=== PATIENT | male | born 1965 | race Caucasian/White ===

== ENCOUNTER → 2020-08-08 09:48 | Outpatient (CLI) | payer OTHER, SELFPAY ==
--- NOTE | 2020-08-08 10:10 | US_ITS ---
HISTORY: Right hydronephrosis. 7 images. No comparison imaging. Findings: The right kidney measures 12.4 x 5.5 x 5.8 cm. Severe right hydronephrosis is present. Right renal cortex is measured at 14 mm. Color Doppler imaging demonstrates flow to right renal parenchyma. Within the within the right UPJ there is a 14 x 7 mm obstructing stone. The bladder is mostly decompressed, but provided an estimated bladder volume of just about 500 cc. Bilateral ureteric jets are demonstrated The left kidney measures 11.6 x 6.1 x 4 cm. There is no hydronephrosis or masses. Within the inferior pole there is an echogenic shadowing structure measuring 4 mm suggestive of a nonobstructing nephrolith. Color Doppler imaging demonstrates flow to left renal parenchyma. IMPRESSION: 14 x 7 mm calcification that appears to be within the right ureteropelvic junction causing severe right hydronephrosis. Despite the hydronephrosis and the stone, a right ureteric jet was demonstrated, indicative of absence of a complete obstruction. at 0413 Reported and signed by: Vishal Boykin MD Electronically Signed: Vishal Boykin MD at 4:12 EDT Tel , Service support , US/Kidney and Bladder
[2020-08-08 10:17] LABS: Absolute Lymphocyte Count 1.25 X10^3/uL (0.83-4.51); Absolute Neutrophil Count 3.7 X10^3/uL (2.0-7.7); Basophil# 0.04 X10^3/uL; Basophil% 0.7 % (0-1); Eosinophil# 0.29 X10^3/uL; Eosinophils% 4.9 % (0-5); Hematocrit 45.4 % (40-54); Hemoglobin 14.1 g/dL (13.0-16.5); Lymphocyte # 1.25 X10^3/ul (4.0); Lymphocyte % 20.9 % (19-41); Mean Corp Hgb Conc 31.1 g/dL (32-36); Mean Corpuscular Hgb 26.9 pg (27.0-32.0); Mean Corpuscular Volume 86.5 fL (80-94); Mean Platelet Vol. 9.7 fl (6.2-12.0); Monocyte# 0.64 X10^3/uL; Monocyte% 10.7 % (0-10); NRBC Flagged by Analyzer 0 % (0-5); Neutrophil # 3.73 X10^3/uL (2.7-7.7); Neutrophil % 62.5 % (47-70); Platelet Count 368 K/mm3 (150-450); RBC Distribution Width CV 15.3 % (11.6-14.6); RBC Distribution Width SD 48.5 fl (35.1-43.9); Red Blood Count 5.25 M/mm3 (4.6-6.2)
[2020-08-08 10:59] LABS: Vitamin B12 810 pg/mL (211-911)
[2020-08-08 11:11] LABS: ALB/GLOB Ratio 0.8 RATIO (0.9-2.4); AST(SGOT) 59 U/L (15-37); Alanine Aminotransfer ALT/SGPT 83 U/L (16-61); Albumin, Serum 3.9 g/dL (3.2-5.0); Alkaline Phosphatase 151 U/L (45-117); Anion Gap 6 (5-15); BUN 19 mg/dL (7-18); BUN/Creat Ratio 17.6 RATIO (10-20); Calcium,Total 9.3 mg/dL (8.5-10.1); Chloride 103 mmol/L (98-107); Cholesterol 217 mg/dL (200); Creatinine, Serum 1.08 mg/dL (0.70-1.30); EST Glomerular Filtration Rate 76 mL/min (>60); Est Glom Filt Rate - Afr Amer 92 mL/min (>60); Ferritin 14 ng/mL (26-388); Globulin 4.6 g/dL (2.2-4.2); Glucose 94 mg/dL (74-106); High Density Lipoprotein 56 mg/dL; Iron 149 ug/dL (65-175); PSA,Total - Annual Screen 2.04 ng/mL (0.00-4.00); Potassium 4.4 mmol/L (3.5-5.1); Protein, Total 8.5 g/dL (6.4-8.2); Sodium Level 138 mmol/L (136-145); Thyroid Stim Hormone (TSH) 3.04 uIU/mL (0.358-3.74); Triglycerides 87 mg/dL; Very Low Density Lipoprotein 17 mg/dL (5-40)
== END ==
PROVIDERS: PCP Family Medicine; Referring Provider Family Medicine; Visit Provider Family Medicine
DX: Z00.00 Encounter for general adult medical examination without abnormal findings (principal); N13.30 Unspecified hydronephrosis; D64.9 Anemia, unspecified; E78.00 Pure hypercholesterolemia, unspecified; Z12.5 Encounter for screening for malignant neoplasm of prostate
CPT/HCPCS: 36415; 76770; 80053; 80061; 82607; 82728; 83540; 84153; 84443; 85025; G0103

== ENCOUNTER → 2020-09-01 09:52 | Outpatient (CLI) | payer OTHER, SELFPAY ==
--- NOTE | 2020-09-01 09:55 | NM_ITS ---
CLINICAL: 55-year-old male with reported history of right kidney hydronephrosis. 99m Tc MAG3 DIURETIC RENAL SCINTIGRAPHY COMPARISON: Renal ultrasound report 08/08/2020 FINDINGS: Following the intravenous administration of 11.1 mCi of 99m Tc MAG3, renal images reveal: 1. The flow study demonstrates mildly decreased arterial phase distribution of the radiopharmaceutical to the right kidney. Flow to the left kidney appears normal. 2. Immediate static delayed nephrogram images depict prompt, homogeneous tracer uptake by the renal parenchyma of both kidneys. Collecting structure visualization is defined at 2 minutes following tracer injection and approximately 3-4 minutes post tracer injection regarding the right kidney. Washout by the renal parenchyma of both kidneys appears qualitatively normal. Persistent collecting system activity is defined in the bilateral kidneys (R > L) during 20 minutes of pre-Lasix sequential image acquisition. 3. The zozpo-ai-umst ratio of total renal parenchymal function was calculated to be 50/50. Furosemide 10 mg was administered intravenously. The post Lasix T ? washout of the left kidney collecting system was calculated to be < 10 minutes and approximately 12 minutes regarding the right kidney collecting system activity, (normal < 10 minutes). NM/Renal Scan w/ Pharm Intervent IMPRESSION: 1. There is preservation of bilateral renal parenchymal-cortical function. 2. The prominent-sized dilated right kidney collecting system demonstrates an indeterminate response to induced diuresis (T ? > 10 and < 20 minutes). A normal response to LASIX administration is defined in the left kidney collecting system as defined above. Electronically Signed: Niko Guerrero DO at 8:01 EST Tel , Service support ,
[2020-09-01] MEDS: Furosemide 20 MG/2 ML VIAL 10 MG IV (10:23)
== END ==
PROVIDERS: PCP Family Medicine; Referring Provider Urology; Visit Provider Urology
DX: N13.1 Hydronephrosis with ureteral stricture, not elsewhere classified (principal)
CPT/HCPCS: 78708; A9562

== ENCOUNTER 2020-09-29 13:27 | Observation (INO) | payer OTHER, SELFPAY ==
--- NOTE | 2020-09-22 15:48 | EKG12_ITS ---
Test Reason : PRE-OP Blood Pressure : / mmHG Vent. Rate : 067 BPM Atrial Rate : 067 BPM P-R Int : 170 ms QRS Dur : 120 ms QT Int : 384 ms P-R-T Axes : -01 008 046 degrees QTc Int : 405 ms Normal sinus rhythm [id number] Confirmed by GABBIE ALVAREZ, AUSTIN ([id number]), design editor SHERON AMEZCUA ([id number]) on 09/26/2020 1:38:43 PM Referred By: Sebas Aponte Confirmed By:AUSTIN CARTWRIGHT MD
[2020-09-22 17:10] LABS: Hematocrit 43.3 % (40-54); Hemoglobin 13.5 g/dL (13.0-16.5); Mean Corp Hgb Conc 31.2 g/dL (32-36); Mean Corpuscular Hgb 27.2 pg (27.0-32.0); Mean Corpuscular Volume 87.1 fL (80-94); Mean Platelet Vol. 10.4 fl (6.2-12.0); Platelet Count 338 K/mm3 (150-450); RBC Distribution Width CV 15.5 % (11.6-14.6); RBC Distribution Width SD 49.1 fl (35.1-43.9); Red Blood Count 4.97 M/mm3 (4.6-6.2); White Blood Count 6.3 K/mm3 (4.4-11.0)
[2020-09-22 17:54] LABS: ALB/GLOB Ratio 0.9 RATIO (0.9-2.4); AST(SGOT) 18 U/L (15-37); Alanine Aminotransfer ALT/SGPT 34 U/L (16-61); Albumin, Serum 3.7 g/dL (3.2-5.0); Alkaline Phosphatase 93 U/L (45-117); Anion Gap 6 (5-15); BUN 16 mg/dL (7-18); BUN/Creat Ratio 14.7 RATIO (10-20); Calcium,Total 9.2 mg/dL (8.5-10.1); Chloride 105 mmol/L (98-107); Creatinine, Serum 1.09 mg/dL (0.70-1.30); EST Glomerular Filtration Rate 75 mL/min (>60); Est Glom Filt Rate - Afr Amer 91 mL/min (>60); Globulin 4.1 g/dL (2.2-4.2); Glucose 79 mg/dL (74-106); Potassium 4.4 mmol/L (3.5-5.1); Protein, Total 7.8 g/dL (6.4-8.2); Sodium Level 140 mmol/L (136-145)
[2020-09-28] VITALS (12 sets, daily range): BP systolic 136–166; BP diastolic 86–105; PULSE 64–107; RESP 16–22; TEMP 36.1–37.1; O2SAT 95–99; BMI 24.7; BMI 24.6
[2020-09-28] MEDS: Lactated Ringers 1,000 ML 100 ML IV ×2 (06:27→08:45)
[2020-09-28] MEDS: Cefazolin 2 GM in 0.9% Normal Saline 100 ML IV (07:23)
--- NOTE | 2020-09-28 07:29 | HP.PCM_ITS ---
Problem List (1) Obstruction of right ureteropelvic junction (UPJ) Status: Acute (2) Right kidney stone Status: Acute History of Present Illness Date of Admission: 09/28/20 Chief Complaint: Right UPJ obstruction with 1.2 cm kidney stone The patient is a 55 year old male who was found to have a large stone in his right kidney also was found to have a UPJ obstruction on CAT scan and renal scan demonstrated intermediate to poor drainage from the right kidney we talked to the patient about options of management for his UPJ obstruction and he wants to continue with surgical repair and so today working to proceed with a laparoscopic robotic assisted right dismembered pyeloplasty, or also going perform an pyelotomy and removal of a kidney stone from the right kidney. Past Medical History Allergies Penicillins Allergy (Verified 09/28/20 06:10) Rash Home Medications: Ambulatory Orders Medication Instructions Recorded Cetirizine HCl [Zyrtec] 10 mg PO DAILY 09/21/20 Lansoprazole [Prevacid] 2 cap PO DAILY 09/21/20 Multivit-Min/Folic/Vit K/Lycop 1 ea PO DAILY 09/21/20 [Men's Daily Formula Tablet] Ciprofloxacin [Cipro] 500 mg PO BID #14 tab 09/28/20 Docusate Sodium [Colace] 100 mg PO BID #20 cap 09/28/20 Hydrocodone/Acetaminophen [Theodore 1 ea PO Q6H PRN PRN 7 Days #14 tab 09/28/20 5-325 Tablet] Surgical History: no surgical history Smoking Status: Former smoker Tobacco Use: Cigarettes, Chew Review of Systems Constitutional: Denies: Chills, Fever, Weight Change HEENT: Denies: Head Aches, Sinus Congestion, Sinus Drainage Cardiovascular: Denies: Chest Pain, Palpitations Respiratory: Denies: Cough, Shortness of breath at rest, Sputum production Gastrointestinal: Denies: Abdominal Pain, Nausea, Vomiting Genitourinary: Denies: Dysuria Musculoskeletal: Denies: Joint Pain, Joint Tenderness Skin: Denies: Rash, Wounds Neurological: Denies: Numbness, Tingling, Focal weakness Psychiatric: Denies: Anxiety, Depression, Homicidal Ideations, Suicidal Ideation s Hematologic/ Lymphatic: Denies: Easy Bruising, Easy Bleeding VTE Information - Inpt Only VTE Present on Admission: No - Physical Exam Vitals/I&O's: Vital Signs Temp Pulse Resp BP Pulse Ox 97.6 F L 73 16 138/95 H 95 09/28/20 06:13 09/28/20 06:13 09/28/20 06:13 09/28/20 06:13 09/28/20 06:13 Oxygen Delivery Method Room Air Weight: 75.9 kg Body Mass Index (BMI) 24.7 General: Alert, Oriented x3, Cooperative HEENT: Atraumatic, PERRLA, EOMI, Normocephalic Neck: Supple, No JVD, Negative Carotid Bruits Lungs: Clear to auscultation, Normal air movement Cardiovascular: Regular rate, No murmurs Abdomen: Bowel Sounds Present, Soft, Non Tender Extremities: No edema, Capillary Refill Less than 3 Seconds Skin: No rashes, No breakdown Musculoskeletal: No Tenderness to Palpation of Joints or Extremities Neurological: Cranial nerves II-XII grossly intact Psych/Mental Status: Normal Affect, Appropriate Microbiology Past 72 Hours 09/26/20 15:45 Interface Orders SARS-CoV-2 Antigen (Rapid) - Final Current Medications Acetaminophen (Acetaminophen 325 Mg Tablet) 325 - 650 mg PO Q4H PRN PRN PRN Reason: pain score 1-10/fever/headache Hydrocodone Bitart/Acetaminophen (Hydrocodone Bitartrate/Apap 5/325 Tablet) 1 - 2 tablet PO Q6H PRN PRN PRN Reason: Pain Score 1-5 Cefazolin Sodium 2 gm/ Sodium (Chloride) 110 mls @ 150 mls/hr IV PREOP ONE Stop: 09/28/20 07:43 Lactated Ringer's () 1,000 mls @ 100 mls/hr IV .Q10H [facility] Last Admin: 09/28/20 06:27 Dose: 100 mls/hr Documented by: Lactated Ringer's () 1,000 mls @ 125 mls/hr IV .Q8H [facility] Stop: 09/29/20 10:00 Ciprofloxacin (Cipro) 400 mg in 200 mls @ 200 mls/hr IV Q12 [facility] Stop: 09/28/20 22:59 Ketorolac Tromethamine (Ketorolac 15 Mg/Ml Vial) 15 mg IV Q6H [facility] Stop: 09/29/20 13:31 Morphine Sulfate (Morphine 2 Mg/Ml Syringe) 1 mg IV Q2H PRN PRN PRN Reason: Pain Score 6-10 Non-Formulary Medication (Lansoprazole) 2 cap PO DAILY [facility] Ondansetron HCl (Ondansetron 4 Mg/2 Ml Vial) 4 mg IV Q8H PRN PRN Reason: Nausea Assessment/Plan All Active Problems Obstruction of right ureteropelvic junction (UPJ) (Acute) Right kidney stone (Acute) Plan to proceed with right dismembered pyeloplasty, pyelotomy and removal of large kidney stone.
--- NOTE | 2020-09-28 07:30 | MISC_PTH ---
PATIENT: SHAYAN SARGENT LOC: [facility]3 U#:[id number] AGE/SX: 55/M ROOM: IA310 RE09/29/[address]: Dr. Sebas Aponte MD : 1965 BED: 1 DIS: 10/01/2020 SPEC #: [id number] RECD: 09/28/20 10:57 STATUS: ALICE GOLDJuan Miguel #: [id number] CHRISTOPHER: 09/28/20 07:[address]: Sebas Aponte DEPT: SURGICAL PATHOLOGY RECD BY: Beverly Mckeon ENTERED: 09/28/20 12:15 SP TYPE: MISC OTHR DR: Dr. Moise Rogers MD Tissues: A - CALCULI B - Soft tissues of pelvis, NOS C - Ureter, NOS Procedures: Surgery Specimen Level I Surgery Specimen Level IV HEADER OPERATION: Lap robotic pyeloplasty, removal kidney stone PRE-OP DIAGNOSIS: Obstructive defects of right renal pelvis and ureter; calculus of right kidney TISSUE SUBMITTED: A - Kidney stone, B - Renal pelvis, C - UPJ segment MICROSCOPIC DIAGNOSIS B. Renal pelvis, pyeloplasty: Pieces of urothelial mucosa with underlying smooth muscle proper with mild chronic inflammation and reactive changes. C. UPJ segment, biopsy: A pieces of urothelial mucosa with underlying smooth muscle proper with focal minimal chronic inflammation and reactive changes. SJ:zack 09/29/20 GROSS DIAGNOSIS A. Kidney stone: A fragment of stone, clinically kidney stone (gross only). COMMENT A. If chemical analysis is requested on this specimen, please notify the laboratory. MICROSCOPIC DESCRIPTION Slides are reviewed. GROSS DESCRIPTION A - Received without fixative is one container labeled with the patient's name and designated kidney stone. The specimen consists of a single irregular fragment of dark ashraf calculus measuring 0.7 x 0.5 x 0.5 cm. The entire specimen is saved for stone analysis if needed. B - Received in fixative is one container labeled with the patient's name and designated renal pelvis. The specimen consists of two glistening fragments of ashraf mucosa with attached submucosal tissue that in aggregate measure 2.7 x 2.5 x 0.3 cm. No distinct mass lesions are identified. The specimen is sectioned and totally submitted in two cassettes. C - Received in fixative is one container labeled with the patient's name and designated UPJ segment. The specimen consists of one irregular fragment of light ashraf soft tissue that measures 0.2 x 0.1 x <0.1 cm. The specimen is totally submitted in one cassette. / AM:zack 09/28/20 TC:3 CPT: 37541, 45801 x2
--- NOTE | 2020-09-28 07:31 | DCINST_ITS ---
Discharge Diet: Light diet - advance as tolerated, Soft diet Discharge Activity: May not drive while taking narcotic pain medications., May Shower Return to work on:: 10/19/20 May shower in (days): 1 Lifting Restrictions: NO lifting > 10 pounds Call your doctor if your incision/area has: Continuous Slow Oozing, Sudden Increased Bleeding, Increased Pain/ Swelling, Increased Redness, Foul Smelling Discharge, Swelling at the incision site Call your doctor if you observe: Fever of 101 or Higher Suture Line Care: Avoid Pulling/Pushing, Avoid Pinching/Bending Allergies/Adverse Reactions: Allergies Penicillins Allergy (Verified 09/28/20 06:10) Rash Medications to take at Discharge Cetirizine HCl [Zyrtec] 10 mg PO DAILY 09/21/20 Lansoprazole [Prevacid] 2 cap PO DAILY 09/21/20 Multivit-Min/Folic/Vit K/Lycop [Men's Daily Formula Tablet] 1 ea PO DAILY 09/21/20 Ciprofloxacin [Cipro] 500 mg PO BID #14 tab 09/28/20 Docusate Sodium [Colace] 100 mg PO BID #20 cap 09/28/20 Hydrocodone/Acetaminophen [Trenton 5-325 Tablet] 1 ea PO Q6H PRN PRN 7 Days #14 tab 09/28/20 The following prescriptions were given: Ciprofloxacin [Cipro] 500 mg PO BID #14 tab Transmission Status: Sent to [facility] Docusate Sodium [Colace] 100 mg PO BID #20 cap Transmission Status: Sent to [facility] Hydrocodone/Acetaminophen [[place] 5-325 Tablet] 1 ea PO Q6H PRN PRN 7 Days #14 tab PRN Reason: Pain 1-10 Or Fever Transmission Status: Sent to [facility] Primary Care Physician: Moise Rogers MD [Primary Care Provider] - Test Results: Test results from this visit will be discussed in further detail at your follow- up appointment, if applicable. Please Follow Up With: Sebas Aponte MD When: in 2 weeks, please call to make an appointment. Proposed Discharge Date: 09/29/20
[2020-09-28] MEDS: Bupivacaine Mpf 0.5% 30 ML VIAL (07:57)
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
[2020-09-28] MEDS: Ketorolac 15 MG/ML Vial IV ×3 (10:48→22:05)
[2020-09-28] MEDS: Lactated Ringers 1,000 ML 125 ML IV ×2 (10:53→18:25)
[2020-09-28] MEDS: Ciprofloxacin 400 MG/200 ML BAG 200 MG IV (14:19)
--- NOTE | 2020-09-28 15:30 | NURSING ---
patient stood at side of bed with assistance from staff toxicologist. Patient then ambulated a small distance to the chair. He is currently sitting in the chair. denies needs at this time. call light within reach
--- NOTE | 2020-09-28 17:39 | PCS.PANDOC ---
PANDEMIC DOCUMENTATION INITIATED: Date: 09/28/20 Time: 1200
[2020-09-28] MEDS: Morphine 2 MG/ML Syringe 1 MG IV ×2 (18:22→22:57)
[2020-09-28] MEDS: Acetaminophen 325 MG Tablet PO (18:23)
[2020-09-29] VITALS (7 sets, daily range): BP systolic 148–152; BP diastolic 80–87; PULSE 84–95; RESP 16–18; TEMP 36.7–37.4; O2SAT 91–98
[2020-09-29] MEDS: HYDROcodone Bitartrate/Apap 5/325 Tablet PO ×4 (00:12→21:46)
[2020-09-29] MEDS: Lactated Ringers 1,000 ML 125 ML IV (02:31)
[2020-09-29] MEDS: Ciprofloxacin 400 MG/200 ML BAG 200 MG IV (02:40)
[2020-09-29] MEDS: Ketorolac 15 MG/ML Vial IV ×4 (03:55→20:55)
[2020-09-29] MEDS: Morphine 2 MG/ML Syringe 1 MG IV (06:00)
--- NOTE | 2020-09-29 07:02 | PCM.PN.BLA ---
Progress Note Postoperative day #1 status post a laparoscopic robotic pyeloplasty Last night had some shoulder pain probably from gas in the belly feels like he needs to pass gas and then walking around a lot somewhat feeling uncomfortable but not distended. On exam is alert oriented x3 abdomen soft and benign incisions clean and intact Advance diet as tolerated ambulate await bowel sounds and some flatus hopefully can go home later today.
[2020-09-29] MEDS: Lansoprazole 15 MG Capsule.DR 30 MG PO (08:37)
[2020-09-29] MEDS: 0.9% Saline Lock 10 ML Syringe IV ×2 (15:41→20:55)
[2020-09-30 00:20] VITALS: BP 166/92; PULSE 90; RESP 16; TEMP 37.1; O2SAT 98
[2020-09-30 05:26] VITALS: BP 160/97; PULSE 92; RESP 20; TEMP 37.5; O2SAT 93
[2020-09-30] MEDS: HYDROcodone Bitartrate/Apap 5/325 Tablet PO ×3 (05:32→17:49)
--- NOTE | 2020-09-30 05:56 | CT_ITS ---
STUDY: CT ABDOMEN AND PELVIS WITH CONTRAST REASON FOR EXAM: Male, 55 years old. ABDOMINAL PAIN AND BLOATING SINCE RIGHT KIDNEY SURGERY 09/28/2020 FOR URETER OBSTRUCTION RADIATION DOSAGE (If Supplied By Facility): CTDIvol = ( 18.88 ) mGy, DLP = ( 1338.70 ) mGycm TECHNIQUE: Transaxial images were obtained from the dome of the diaphragm to the symphysis pubis without oral contrast. 100 ML ISOVUE 300 was administered. Sagittal and coronal images were reconstructed. Individualized dose optimization techniques were used for this CT. COMPARISON: None. FINDINGS: Bibasilar infiltration and/or atelectasis is worse on the right side. The visualized portions of the heart are within normal limits. Normal liver. Perihepatic fluid is seen. An air-fluid level is seen along the anterior aspect of the perihepatic fluid in keeping with the free intraperitoneal air. A small amount of air is also seen in the region of the gallbladder fossa. Fluid is seen in the right infrahepatic space. Normal gallbladder and extrahepatic biliary system. Normal spleen. Normal pancreas. Normal bilateral adrenal glands. A double-J stent catheter is seen within the right collecting system. Residual moderate degree of right hydronephrosis. 2 mm nonobstructive calculus in the left kidney. Normal visualized stomach. Normal small intestine. There is evidence of fluid in the right paracolic gutter. Normal colon. The appendix is visualized and appears normal. Normal abdominal aorta. Normal inferior vena cava. Normal retroperitoneum. Normal urinary bladder. There is evidence of edema and air along the anterior abdominal wall as well as the right lateral abdominal wall most likely secondary to the placement of the trochars. There is a 10.7 cm x 3 cm fluid collection deep in the muscle layer along the right lateral abdominal wall. The subcutaneous emphysema extends down into the right anterior pelvic region and into the scrotum more prominent on the right side. Loss of the normal lumbar lordosis. CT/Abdomen/Pelvis WITH Contrast IMPRESSION: Free intraperitoneal air with fluid seen in the perihepatic space as well as the right hepatorenal space and right paracolic gutter. Subcutaneous emphysema overlying the anterior abdominal wall as well as in the right lateral wall down to the region of the scrotum bilaterally. Fluid collection is seen within the lateral abdominal wall on the right side. Moderate right hydronephrosis. A double-J stent catheter is seen within the collecting system on the right side. Bibasilar atelectasis more prominent on the right side. Electronically Signed: Jesu Davila, at 9:42 EST , Service support ,
--- NOTE | 2020-09-30 06:27 | PN_ITS ---
Progress Note Postoperative day #2 status post robotic pyeloplasty. Catheter is out he is urinating well but he is having a lot of gas pain certainly a lot more than I would expect. We will get a get blood work this morning the CBC and a BMP which is still pending. I have given Dulcolax suppository. On exam his abdomen is tense a lot of pressure bowel sounds are hypoactive. I am going to run a CAT scan of the abdomen pelvis with oral contrast. We will see what the CBC and BMP show initially I think that this is just gas pain but certainly out of p roportion to what I expect so can run a CAT scan just to make sure and will do a Dulcolax suppository and stool softeners. STROKE Vital Signs/Narrative: Vital Signs Temp Pulse Resp BP Pulse Ox 09/30/20 05:26 99.5 F H 92 20 H 160/97 H 93
[2020-09-30] MEDS: Bisacodyl 10 MG Suppository RECTAL (06:40)
[2020-09-30 06:54] VITALS: O2SAT 93
[2020-09-30] MEDS: Ketorolac 15 MG/ML Vial IV ×2 (06:57→14:11)
[2020-09-30 07:10] LABS: Hematocrit 37.2 % (40-54); Hemoglobin 11.8 g/dL (13.0-16.5); Mean Corp Hgb Conc 31.7 g/dL (32-36); Mean Corpuscular Hgb 26.9 pg (27.0-32.0); Mean Corpuscular Volume 84.9 fL (80-94); Mean Platelet Vol. 9.7 fl (6.2-12.0); Platelet Count 278 K/mm3 (150-450); RBC Distribution Width CV 15.7 % (11.6-14.6); RBC Distribution Width SD 48.9 fl (35.1-43.9); Red Blood Count 4.38 M/mm3 (4.6-6.2); White Blood Count 14.7 K/mm3 (4.4-11.0)
[2020-09-30 07:33] LABS: Anion Gap 4 (5-15); BUN 17 mg/dL (7-18); BUN/Creat Ratio 9.8 RATIO (10-20); Chloride 104 mmol/L (98-107); Creatinine, Serum 1.74 mg/dL (0.70-1.30); EST Glomerular Filtration Rate 44 mL/min (>60); Est Glom Filt Rate - Afr Amer 53 mL/min (>60); Estimated Creatinine Clearance 48.53 ml/min; Glucose 99 mg/dL (74-106); Potassium 4.1 mmol/L (3.5-5.1); Sodium Level 136 mmol/L (136-145)
[2020-09-30 08:10] VITALS: BP 154/98; PULSE 95; RESP 18; TEMP 37; O2SAT 93
[2020-09-30] MEDS: Docusate Sodium 100 MG Capsule 200 MG PO ×2 (10:43→21:11)
[2020-09-30] MEDS: Lansoprazole 15 MG Capsule.DR 30 MG PO (11:44)
[2020-09-30 14:08] VITALS: BP 143/86; PULSE 97; RESP 18; TEMP 36.9; O2SAT 94
[2020-09-30] MEDS: 0.9% Saline Lock 10 ML Syringe IV (14:11)
[2020-09-30 20:10] VITALS: BP 146/101; PULSE 94; RESP 16; TEMP 37.4; O2SAT 97
[2020-10-01 02:10] VITALS: BP 136/86; PULSE 88; RESP 16; TEMP 37.5; O2SAT 96
[2020-10-01] MEDS: Acetaminophen 325 MG Tablet PO (05:13)
[2020-10-01 07:16] VITALS: O2SAT 95
--- NOTE | 2020-10-01 08:40 | PCM.DC.SUM ---
Discharge Date and Diagnosis - Problem List Patient Problems: Active and Suspected Problems Obstruction of right ureteropelvic junction (UPJ) (Acute) Right kidney stone (Acute) Date of Admission: 09/28/20 Date of Discharge: 10/01/20 - Primary Discharge Diagnosis Acute Problems: Active Problems Obstruction of right ureteropelvic junction (UPJ) (Acute) Right kidney stone (Acute) Hospital Course and Treatment Operations: - - laparoscopic pyeloplasty Summary of Care Provided: The patient is a 55 year old male s/p status post robotic right pyeloplasty surgery went well but postoperative day 1 had a lot of abdominal gas pain this continued for another day and a half and then finally he had a bowel movement pass gas we did a CAT scan did confirm no abnormalities. The CAT scan was reviewed and I do not see anything besides constipation and gas. This morning is doing much better tolerating regular food is passed gas feels much better is good to go home with stool softeners antibiotics and pain medicine. Patient Problems: Active and Suspected Problems Obstruction of right ureteropelvic junction (UPJ) (Acute) Right kidney stone (Acute) - Physical Exam Vitals/I&O's: Vital Signs Temp Pulse Resp BP Pulse Ox 99.5 F H 88 16 136/86 H 95 10/01/20 02:10 10/01/20 02:10 10/01/20 02:10 10/01/20 02:10 10/01/20 07:16 Oxygen Flow Rate (L/min) 2 Oxygen Delivery Method Room Air Weight: 75.75 kg Body Mass Index (BMI) 24.6 Intake and Output for Last 24 Hours 09/29/20 09/30/20 10/01/20 23:59 23:59 23:59 Intake Total 2643.75 / 2643.75 1090 / 1390 600 / 600 Output Total 1475 / 1475 775 / 775 Balance 1168.75 / 1168.75 315 / 615 600 / 600 General: Alert, Oriented x3, Cooperative HEENT: Atraumatic, PERRLA, EOMI, Normocephalic Neck: Supple, No JVD, Negative Carotid Bruits Lungs: Clear to auscultation, Normal air movement Cardiovascular: Regular rate, No murmurs Abdomen: Bowel Sounds Present, Soft, Non Tender Extremities: No edema, Capillary Refill Less than 3 Seconds Skin: No rashes, No breakdown Musculoskeletal: No Tenderness to Palpation of Joints or Extremities Neurological: Cranial nerves II-XII grossly intact Psych/Mental Status: Normal Affect, Appropriate Current Medications Acetaminophen (Acetaminophen 325 Mg Tablet) 325 - 650 mg PO Q4H PRN PRN PRN Reason: pain score 1-10/fever/headache Last Admin: 10/01/20 05:13 Dose: 650 mg Documented by: Hydrocodone Bitart/Acetaminophen (Hydrocodone Bitartrate/Apap 5/325 Tablet) 1 - 2 tablet PO Q6H PRN PRN PRN Reason: Pain Score 1-5 Last Admin: 09/30/20 17:49 Dose: 2 tablet Documented by: Docusate Sodium (Docusate Sodium 100 Mg Capsule) 200 mg PO BID [facility] Last Admin: 09/30/20 21:11 Dose: 200 mg Documented by: Ketorolac Tromethamine (Ketorolac 15 Mg/Ml Vial) 15 mg IV Q6H PRN PRN PRN Reason: Pain Score 1-10 Stop: 10/04/20 19:27 Last Admin: 09/30/20 14:11 Dose: 15 mg Documented by: Lansoprazole (Lansoprazole 15 Mg Capsule.Dr) 30 mg PO DAILY [facility] Last Admin: 09/30/20 11:44 Dose: 30 mg Documented by: Ondansetron HCl (Ondansetron 4 Mg/2 Ml Vial) 4 mg IV Q8H PRN PRN Reason: Nausea Sodium Chloride (0.9% Saline Lock 10 Ml Syringe) 10 - 40 ml IV UD PRN PRN Reason: SALINE FLUSH Last Admin: 09/30/20 14:11 Dose: 10 ml Documented by: Discharge Diet: Light diet - advance as tolerated, Soft diet Discharge Activity: May not drive while taking narcotic pain medications., May Shower Return to work on:: 10/19/20 May shower in (days): 1 Call your doctor if your incision/area has: Continuous Slow Oozing, Sudden Increased Bleeding, Increased Pain/ Swelling, Increased Redness, Foul Smelling Discharge, Swelling at the incision site Call your doctor if you observe: Fever of 101 or Higher Suture Line Care: Avoid Pulling/Pushing, Avoid Pinching/Bending Home Medications: Medications to take at Discharge Cetirizine HCl [Zyrtec] 10 mg PO DAILY 09/21/20 Lansoprazole [Prevacid] 30 mg PO DAILY 09/21/20 Multivit-Min/Folic/Vit K/Lycop [Men's Daily Formula Tablet] 1 ea PO DAILY 09/21/20 Ciprofloxacin [Cipro] 500 mg PO BID #14 tab 09/28/20 Docusate Sodium [Colace] 100 mg PO BID #20 cap 09/28/20 Hydrocodone/Acetaminophen [[place] 5-325 Tablet] 1 ea PO Q6H PRN PRN 7 Days #14 tab 09/28/20 Following Prescriptions Were Given to Patient: Ciprofloxacin [Cipro] 500 mg PO BID #14 tab Transmission Status: Received by [facility] Docusate Sodium [Colace] 100 mg PO BID #20 cap Transmission Status: Received by [facility] Hydrocodone/Acetaminophen [[place] 5-325 Tablet] 1 ea PO Q6H PRN PRN 7 Days #14 tab PRN Reason: Pain 1-10 Or Fever Transmission Status: Received by [facility] Primary Care Physician: Moise Rogers MD [Primary Care Provider] - Please Follow Up With: Sebas Aponte MD When: in 2 weeks, please call to make an appointment. Medical Necessity - Tobacco Use Smoking Status: Former smoker Tobacco Use: Cigarettes, Chew Meaningful Use Info Meaningful Use Diagnoses (Choose all that apply): None applicable
[2020-10-01 09:00] VITALS: BP 153/105; PULSE 95; RESP 18; TEMP 37.6; O2SAT 96
[2020-10-01] MEDS: HYDROcodone Bitartrate/Apap 5/325 Tablet PO (10:30)
[2020-10-01] MEDS: Docusate Sodium 100 MG Capsule 200 MG PO (10:31)
[2020-10-01] MEDS: Lansoprazole 15 MG Capsule.DR 30 MG PO (10:32)
[2020-10-01 11:00] VITALS: BP 144/80; PULSE 70; RESP 18; TEMP 37.2; O2SAT 97
== END 2020-10-01 11:10 | disposition home or self-care (01) ==
LOC: SDC 13:51 → MS3 13:51
PROVIDERS: Admitting Provider Urology; PCP Family Medicine; Referring Provider Urology; Visit Provider Urology
PROC: 8E0W4CZ Robotic Assisted Procedure of Trunk Region, Percutaneous Endoscopic Approach (ICD-10-PCS; CPT 50544; principal; 2020-09-28 07:00)
DX: N20.0 Calculus of kidney (principal); Z20.828 Contact with and (suspected) exposure to other viral communicable diseases; Z87.891 Personal history of nicotine dependence; N13.5 Crossing vessel and stricture of ureter without hydronephrosis; K21.9 Gastro-esophageal reflux disease without esophagitis; Z79.899 Other long term (current) drug therapy
CPT/HCPCS: 00862; 50130; 50544; S2900; 36415; 74177; 80048; 80053; 85027; 86850; 86900; 86901; 87426; 88300; 88305; 93005; 96361; 96365; 96366; 96375; 96376; 99218; 99251; 99406; C9803; J7120; Q9967; A4216; C1769; C2617; G0378; G0379; G0463; J0744; J2405

== ENCOUNTER → 2020-12-19 09:42 | Outpatient (CLI) | payer OTHER, SELFPAY ==
[2020-09-28 11:58] VITALS: BMI 24.6
== END ==
PROVIDERS: PCP Family Medicine; Referring Provider Urology; Visit Provider Urology
DX: Q62.39 Other obstructive defects of renal pelvis and ureter (principal)
CPT/HCPCS: 78708; A9562; J1940

== ENCOUNTER 2022-04-19 05:08 | Day surgery (SDC) | payer OTHER, SELFPAY ==
[2022-04-19] MEDS: Lactated Ringers 1,000 ML 15 ML IV (05:45)
[2022-04-19 05:58] VITALS: BP 143/79; PULSE 62; RESP 16; TEMP 36.3; O2SAT 96; BMI 25.4
--- NOTE | 2022-04-19 06:30 | COLBX_PTH ---
PATIENT: SHAYAN SARGENT LOC: EN U#:[id number] AGE/SX: 56/M ROOM: RE04/19/[address]: Dr. Royal Wood DO : 1965 BED: DIS: 04/19/2022 SPEC #: [id number] RECD: 04/19/22 12:47 STATUS: ALICE REJuan Miguel #: [id number] CHRISTOPHER: 04/19/22 06:[address]: Royal Wood DEPT: SURGICAL PATHOLOGY RECD BY: Kaylee Acevedo ENTERED: 04/19/22 13:47 SP TYPE: COLON BX OTHR DR: Dr. Moise Rogers MD Tissues: A - Esophagus, NOS B - Rectum, NOS Procedures: Special Stain Group II Surgery Specimen Level IV Alcian Blue/PAS (control) HEADER OPERATION: Colonoscopy, EGD ([facility] [place]), biopsy PRE-OP DIAGNOSIS: esophageal cancer TISSUE SUBMITTED: A ? Distal esophagus biopsy, B ? Rectal polyp biopsy MICROSCOPIC DIAGNOSIS A. Distal esophagus, biopsy: Fragments of gastric mucosa with chronic inflammation. No evidence of goblet cell metaplasia. See comment. B. Rectal polyp, biopsy: Hyperplastic polyp. AM:zack 04/20/2022 COMMENT A. Alcian blue/PAS stain with matched control supports the above diagnosis. MICROSCOPIC DESCRIPTION Slides are reviewed. GROSS DESCRIPTION A - Received in fixative is one container labeled with the patient's name and designated distal esophagus biopsy. The specimen consists of multiple irregular fragments of light ashraf soft tissue that in aggregate measure 0.6 x 0.6 x 0.1 cm. The specimen is totally submitted in one cassette. B - Received in fixative is one container labeled with the patient's name and designated rectal polyp biopsy. The specimen consists of one irregular fragment of light ashraf soft tissue that measures 0.2 x 0.2 x 0.1 cm. The specimen is totally submitted in one cassette. / ÁLVARO:zack 04/19/2022 TC:3 CPT: 28957 x2, 97552
--- NOTE | 2022-04-19 06:39 | HP.PCM_ITS ---
History and Physical Date of Admission: 04/19/22 SHAYAN SARGENT, is a 56 M who presents to the office today for longstanding GERD. He takes lansoprazole 30 mg daily, has heartburn if he forgets it. No dysphagia. Worries because of family history related to GERD. His mother of esophageal cancer. His son had Devorah fundoplication for GERD/hiatal hernia that wasn't responsive to PPIs.? No abd pain. No change in bowels, BMs are regular, no melena or hematochezia. He has never had screening colonoscopy so he would like to schedule that. ROS Const Constitutional: No fatigue ENT ENT: No difficulty swallowing Gastro GI: Positive for heartburn; No abdominal pain, belching, bloating, change in bowel habits, change in stool character, coffee ground emesis, constipation, cramping, diarrhea, difficulty swallowing, feeling full early, excessive flatus, incontinent of stools, Vomiting blood/hematemesis, Blood in stool, loose stools, Black,tarry stools, nausea/dyspepsia, pain with swallowing, vomiting or other Musc Musculoskeletal: No joint pain Skin Skin: No yellowing of the eye or itchy eyes Psych Psychiatric: No anxiety and No depression Endo Endocrine: No fatigue Aller/Imm Allergy/Immunologic: No itchy eyes Shahriar/Lymp Hematologic/Lymphatic: No easy bleeding or easy bruising Exam Const General: cooperative, healthy appearing, no acute distress, well developed and well groomed Quality Reporting Tobacco Screening ([facility]) Smoking Status: Current every day smoker Assessment and Plan Assessment and Plan (1) FH: esophageal cancer: ?Status:?Acute (2) GERD (gastroesophageal reflux disease): ?Status:?Inactive ?Plan - Laura Nicholson NP, RN PHYSICIAN OFFICE-C: Continue PPI for GERD. EGD to evaluate for Blanco's. His mother of esophogeal cancer. Will also schedule him for screening colonoscopy. F/u 2 wks after endoscopy for discussion of results. I have re-examined the patient. There are no clinical changes since date of exam.
[2022-04-19 07:12] VITALS: BP 122/88; BP 143/79; PULSE 67; RESP 16; TEMP 36.7; O2SAT 95
[2022-04-19 07:15] VITALS: BP 118/85; BP 143/79; PULSE 67; RESP 16; O2SAT 95
--- NOTE | 2022-04-19 07:16 | OP.CCLET_ITS ---
07/24/2022 Moise Rogers Re : Upper GI endoscopy procedure for Shahbaz Espinosa Dear Ken This procedure was performed on March. My impressions and recommendations are as follows: Impressions : - Z-line irregular, 38 cm from the incisors. Biopsied. - Normal stomach. - Normal second portion of the duodenum. Recommendations : - Discharge patient to home. - Resume previous diet. - Continue present medications. - Await pathology results. My findings are described in the full procedure note, which is enclosed. If I can be of further assistance, please feel free to contact me at . Sincerely, Royal Wood DO 04/19/2022 7:15:18 AM This report has been signed electronically.
--- NOTE | 2022-04-19 07:16 | OP.EGD_ITS ---
Patient Name: Shahbaz Espinosa Procedure Date: 04/19/2022 6:21 AM Date of : 1965 Age: 56 Procedure: Upper GI endoscopy Indications: Iron deficiency anemia, Heartburn Providers: Royal Wood DO Medicines: Monitored Anesthesia Care Patient Profile: This is a 56 year old male. Refer to note in patient chart for documentation of history and physical. Patient has symptoms of chronic heartburn. Complications: No immediate complications. Procedure: Pre-Anesthesia Assessment: - Prior to the procedure, a History and Physical was performed, and patient medications and allergies were reviewed. The risks and benefits of the procedure and the sedation options and risks were discussed with the patient. All questions were answered and informed consent was obtained. Patient identification and proposed procedure were verified by the physician in the pre-procedure area. Mental Status Examination: alert and oriented. Airway Examination: normal oropharyngeal airway and neck mobility. Respiratory Examination: clear to auscultation. CV Examination: normal. Prophylactic Antibiotics: The patient does not require prophylactic antibiotics. Prior Anticoagulants: The patient has taken no previous anticoagulant or antiplatelet agents. ASA Grade Assessment: II - A patient with mild systemic disease. After reviewing the risks and benefits, the patient was deemed in satisfactory condition to undergo the procedure. The anesthesia plan was to use moderate sedation / analgesia (conscious sedation). Immediately prior to administration of medications, the patient was re-assessed for adequacy to receive sedatives. The heart rate, respiratory rate, oxygen saturations, blood pressure, adequacy of pulmonary ventilation, and response to care were monitored throughout the procedure. The physical status of the patient was re-assessed after the procedure. After obtaining informed consent, the endoscope was passed under direct vision. Throughout the procedure, the patient's blood pressure, pulse, and oxygen saturations were monitored continuously. The pediatric colonoscope was introduced through the mouth, and advanced to the second part of duodenum. The upper GI endoscopy was accomplished without difficulty. The patient tolerated the procedure well. Scope In: 6:44:16 AM Scope Out: 6:48:01 AM Total Procedure Duration Time 0 hours 3 minutes 45 seconds Findings: The Z-line was irregular and was found 38 cm from the incisors. Biopsies were taken with a cold forceps for histology. Verification of patient identification for the specimen was done. Estimated blood loss was minimal. The entire examined stomach was normal. The second portion of the duodenum was normal. Impression: - Z-line irregular, 38 cm from the incisors. Biopsied. - Normal stomach. - Normal second portion of the duodenum. Recommendation: - Discharge patient to home. - Resume previous diet. - Continue present medications. - Await pathology results. Procedure Code(s): --- Professional --- 16284, Esophagogastroduodenoscopy, flexible, transoral; with biopsy, single or multiple CPT copyright 2017 [employer]. All rights reserved. The codes documented in this report are preliminary and upon time cycle operator review may be revised to meet current compliance requirements. Royal Wood DO 04/19/2022 7:15:18 AM This report has been signed electronically. Number of Addenda: 1 Note Initiated On: 04/19/2022 6:21 AM Addendum Number: 1 Addendum Date: 07/24/2022 6:00:57 AM MAC was used as sedation for this procedure. Royal Wood DO 07/24/2022 6:01:01 AM This report has been signed electronically.
[2022-04-19 07:20] VITALS: BP 121/85; BP 143/79; PULSE 61; RESP 16; O2SAT 96
[2022-04-19 07:25] VITALS: BP 112/80; BP 143/79; PULSE 65; RESP 16; O2SAT 93
--- NOTE | 2022-04-19 07:25 | OP.COLON_ITS ---
Patient Name: Shahbaz Espinosa Procedure Date: 04/19/2022 6:48 AM Date of : 1965 Age: 56 Procedure: Colonoscopy Indications: Screening for colorectal malignant neoplasm Providers: Royal Wood DO Medicines: Monitored Anesthesia Care Patient Profile: This is a 56 year old male. Refer to note in patient chart for documentation of history and physical. Patient has symptoms of chronic heartburn. Last Colonoscopy: none. The patient's first colonoscopy is today. Complications: No immediate complications. Procedure: Pre-Anesthesia Assessment: - Prior to the procedure, a History and Physical was performed, and patient medications and allergies were reviewed. The risks and benefits of the procedure and the sedation options and risks were discussed with the patient. All questions were answered and informed consent was obtained. Patient identification and proposed procedure were verified by the physician in the pre-procedure area. Mental Status Examination: alert and oriented. Airway Examination: normal oropharyngeal airway and neck mobility. Respiratory Examination: clear to auscultation. CV Examination: normal. Prophylactic Antibiotics: The patient does not require prophylactic antibiotics. Prior Anticoagulants: The patient has taken no previous anticoagulant or antiplatelet agents. ASA Grade Assessment: II - A patient with mild systemic disease. After reviewing the risks and benefits, the patient was deemed in satisfactory condition to undergo the procedure. The anesthesia plan was to use moderate sedation / analgesia (conscious sedation). Immediately prior to administration of medications, the patient was re-assessed for adequacy to receive sedatives. The heart rate, respiratory rate, oxygen saturations, blood pressure, adequacy of pulmonary ventilation, and response to care were monitored throughout the procedure. The physical status of the patient was re-assessed after the procedure. After I obtained informed consent, the scope was passed under direct vision. Throughout the procedure, the patient's blood pressure, pulse, and oxygen saturations were monitored continuously. The pediatric colonoscope was introduced through the anus and advanced to the terminal ileum. The colonoscopy was performed without difficulty. The patient tolerated the procedure well. The quality of the bowel preparation was good. Scope In: 6:50:49 AM Scope Withdrawal Time 0 hours 13 minutes 40 seconds Scope Out: 7:06:18 AM Total Procedure Duration Time 0 hours 15 minutes 29 seconds Findings: Multiple medium-sized diffuse angioectasias without bleeding were found in the rectum, in the recto-sigmoid colon and in the sigmoid colon. A 5 mm polyp was found in the rectum. The polyp was sessile. The polyp was removed with a cold biopsy forceps. Resection and retrieval were complete. Verification of patient identification for the specimen was done. Estimated blood loss was minimal. The distal ileum contained four small angiodysplastic lesions with bleeding. Coagulation for hemostasis using heater probe was successful. Estimated blood loss was minimal. A few small-mouthed diverticula were found in the recto-sigmoid colon. Impression: - Multiple non-bleeding colonic angioectasias. - One 5 mm polyp in the rectum, removed with a cold biopsy forceps. Resected and retrieved. - Four bleeding angiodysplastic lesions in the ileum. Treated with a heater probe. Recommendation: - Discharge patient to home. - Resume previous diet. - Continue present medications. - Await pathology results. - Repeat colonoscopy in 5 years for surveillance. - Return to GI office. -Outpatient capsule endoscopy and CT angiography of the abdomen pelvis to look for AV malformations Procedure Code(s): --- Professional --- 46811, 59, Colonoscopy, flexible; with control of bleeding, any method 65208, Colonoscopy, flexible; with biopsy, single or multiple CPT copyright 2017 [employer]. All rights reserved. The codes documented in this report are preliminary and upon professional fee coder review may be revised to meet current compliance requirements. Royal Wood DO 04/19/2022 7:25:20 AM This report has been signed electronically. Number of Addenda: 1 Note Initiated On: 04/19/2022 6:48 AM Addendum Number: 1 Addendum Date: 07/24/2022 6:01:09 AM MAC was used as sedation for this procedure. Royal Wood DO 07/24/2022 6:01:13 AM This report has been signed electronically.
--- NOTE | 2022-04-19 07:26 | OP.CCLET_ITS ---
07/24/2022 Moise Rogers Re : Colonoscopy procedure for Shahbaz Espinosa Dear Ken This procedure was performed on March. My impressions and recommendations are as follows: Impressions : - Multiple non-bleeding colonic angioectasias. - One 5 mm polyp in the rectum, removed with a cold biopsy forceps. Resected and retrieved. - Four bleeding angiodysplastic lesions in the ileum. Treated with a heater probe. Recommendations : - Discharge patient to home. - Resume previous diet. - Continue present medications. - Await pathology results. - Repeat colonoscopy in 5 years for surveillance. - Return to GI office. -Outpatient capsule endoscopy and CT angiography of the abdomen pelvis to look for AV malformations My findings are described in the full procedure note, which is enclosed. If I can be of further assistance, please feel free to contact me at . Sincerely, Royal Wood, 04/19/2022 7:25:20 AM This report has been signed electronically.
[2022-04-19 07:29] VITALS: BP 123/98; BP 143/79; PULSE 68; RESP 16; TEMP 36.2; O2SAT 95
--- NOTE | 2022-04-19 08:03 | SUR.PHASEII ---
ride not coming for an hour so wants to wait in waiting room- escorted pt to waiting area- gait steady and reece well
== END 2022-04-19 08:05 | disposition home or self-care (01) ==
LOC: EN 05:09 → AC 05:13
PROVIDERS: PCP Family Medicine; Referring Provider Family Medicine; Visit Provider Internal Medicine Gastroenterology
PROC: 0DJD8ZZ Inspection of Lower Intestinal Tract, Via Natural or Artificial Opening Endoscopic (ICD-10-PCS; CPT 45378; principal; 2022-04-19 06:25)
DX: Z12.11 Encounter for screening for malignant neoplasm of colon (principal); K57.30 Diverticulosis of large intestine without perforation or abscess without bleeding; K63.89 Other specified diseases of intestine; K21.00 Gastro-esophageal reflux disease with esophagitis, without bleeding; K62.1 Rectal polyp; F17.200 Nicotine dependence, unspecified, uncomplicated; Z80.0 Family history of malignant neoplasm of digestive organs; Z79.899 Other long term (current) drug therapy
CPT/HCPCS: 43239; 45380; 45382; 88305; 88313; J7120; J2405

== ENCOUNTER → 2022-05-16 | Outpatient (CLI) | payer OTHER, SELFPAY ==
--- NOTE | 2022-05-16 06:51 | CT_ITS ---
STUDY: CTA ABDOMEN AND PELVIS WITH CONTRAST REASON FOR EXAM: Male, 56 years old. Angiodysplasia of Gi tract RADIATION DOSAGE (If Supplied By Facility): CTDIvol = ( 25.23 ) mGy, DLP = ( 774.15 ) mGycm TECHNIQUE: Transaxial images were obtained from the dome of the diaphragm to the symphysis pubis without oral contrast. IV 100mL Isovue-300 was administered. Sagittal and coronal images were reconstructed. Individualized dose optimization techniques were used for this CT. COMPARISON: Comparison is made with prior examination of 09/30/2020. FINDINGS: The visualized lung bases are unremarkable. The visualized portions of the heart are within normal limits. Normal liver. Normal gallbladder and extrahepatic biliary system. Normal spleen. Normal pancreas. Normal bilateral adrenal glands. Bilateral hydronephrosis most likely secondary to ureteropelvic junction obstruction. There is a small hiatal hernia. Normal small intestine. Normal colon. The appendix is visualized and appears normal. Normal abdominal aorta. Normal inferior vena cava. Normal retroperitoneum. Normal urinary bladder. Central prostatic calcification. Normal abdominal wall. Loss of the normal lumbar lordosis. Mild degenerative changes of the lumbar spine CT/CT ANGIO ABD&PEL W/O&W/DYE IMPRESSION: Stable bilateral hydronephrosis. Electronically Signed: Jesu Davila MD at 14:43 EDT ,
== END | disposition home or self-care (01) ==
PROVIDERS: PCP Family Medicine; Referring Provider Nurse Practitioner Adult Health; Visit Provider Nurse Practitioner Adult Health
DX: K55.20 Angiodysplasia of colon without hemorrhage (principal)
CPT/HCPCS: 74174; Q9967

== ENCOUNTER 2024-09-13 15:59 | Emergency (ER) | payer OTHER, SELFPAY ==
[2024-09-13 16:00] VITALS: BP 142/95; PULSE 88; RESP 17; TEMP 36.3; O2SAT 100; BMI 25.8
--- NOTE | 2024-09-13 16:11 | EDS_ITS ---
HPI History of Present Illness Chief Complaint: Upper Extremity Injury Narrative Narrative: 59-year-old male who denies significant past medical history with the exception of remote bilateral shoulder reconstructive surgery presents with injury to his right posterior shoulder that he sustained about an hour ago. He states that he was working outside, and fell onto his right shoulder. He denies hitting his head or loss of consciousness. He now has difficulty raising his right arm. He states he is able to do it but is very painful mainly in the posterior portion of his right shoulder. No neck pain or other injury. PFSH [facility] Medical History Alcohol use Seasonal allergies High cholesterol Smoker FH: esophageal cancer GERD (gastroesophageal reflux disease) Actinic keratosis Anemia Home Medications ?Medication ?Instructions ?Recorded ?Last Taken ?Type cetirizine 10 mg tablet 10 mg PO DAILY allergies 09/21/20 Unknown History hnogumdr-unsdhxbm-mpjpo acid 400 1 ea PO DAILY supplement 09/21/20 Unknown History mcg-vit K 20 mcg-lycop 300 mcg tablet lansoprazole 30 mg capsule,delayed 30 mg PO DAILY #90 caps 05/04/22 Unknown Rx release Allergy/AdvReac Type Severity Reaction Status Date / Time Penicillins Allergy Rash Verified 09/13/24 16:02 Family History Grandmother Colon cancer Grandfather Hypertension Mother Esophageal cancer Thyroid disorder Father Hypertension Myocardial infarction Surgical History History of wisdom tooth extraction History of surgical amputation of finger History of appendectomy History of kidney surgery History of shoulder surgery History of foot surgery History of tonsillectomy and adenoidectomy Social History Smoking Status: Current some day smoker tobacco type: cigarettes alcohol intake: current ROS ROS ED ROS Narrative Focused review of systems positive for right shoulder pain, posterior, worse with movement. No other injury. No elbow pain or neck pain. Pain is worse with movement especially trying to raise right shoulder/arm in front of him. Unable to reach across body. EXAM Physical Exam Const Vital Signs: 09/13/24 16:00 Temperature 97.3 F L Temperature Source Temporal Pulse Rate 88 Respiratory Rate 17 Blood Pressure 142/95 H Blood Pressure Mean 110 Pulse Ox 100 Oxygen Delivery Method Room Air MDM MDM MDM Narrative Medical decision making narrative: Differential diagnosis includes but not limited to right shoulder contusion versus fracture. I have low suspicion for clinical dislocation based on the history and physical. He may have more of a rotator cuff/ligamentous/muscular injury as well. Patient declined any oral analgesics here in the emergency department, or ice pack. X-rays were obtained of the right shoulder in 3 views and interpreted by myself independently. On my independent interpretation of his x-rays, there is no evidence of fracture or dislocation. I reviewed the radiology report which confirms my independent interpretation. I offered him a sling for comfort, but he declined. I do not feel that emergent MRI is indicated. I feel he probably has more of an internal derangement of his right shoulder. I feel he can be discharged to follow-up with orthopedics. He states he has seen [facility] in the past. Return instructions to the emergency department were reviewed. Disposition is discharged home in stable condition. Discharge Plan Triage Chief Complaint: Upper Extremity Injury ED Provider: Mahamed Almendarez Dx/Rx/DC Orders Clinical Impression: Contusion of right shoulder, Injury of shoulder, right Instructions: ED Shoulder Sprain, ED Shoulder Pain, Uncertain Cause Prescriptions: No Action lansoprazole 30 mg capsule,delayed release(DR/EC) 30 mg PO DAILY Qty: 90 3RF cetirizine 10 MG tablet 10 mg PO DAILY kyhielqf-rpl-lwnwk-vit K-lycop 1 EACH tablet 1 ea PO DAILY Primary Care Provider: Care Physician,No Primary Referrals: Ayo Lerner MD [Med Staff - Active Staff] - As soon as possible NOT,DEFINED [Non-Staff] - Activity Restrictions/Additional Instructions: Continue jmxj-ypu-rpvljkz medications as needed for analgesia. Follow-up with orthopedics as soon as possible. Print Language: Cam[place] Disposition Disposition: Home, Self Care
--- NOTE | 2024-09-13 16:20 | RAD_ITS ---
EXAM: XR RIGHT SHOULDER COMPLETE, 2 OR MORE VIEWS CLINICAL INDICATION: pain -- with axillary view TECHNIQUE: Two or more views of the right shoulder. COMPARISON: No relevant prior studies available. FINDINGS: BONES/JOINTS: No acute fracture or subluxation. SOFT TISSUES: Soft tissue calcification adjacent to the greater tubercle consistent with calcific tendinitis. No soft tissue swelling or gas. No radiopaque foreign body. RAD/Shoulder min 2 Views IMPRESSION: 1. No acute fracture or subluxation. 2. Soft tissue calcification adjacent to the greater tubercle consistent with calcific tendinitis. Electronically Signed: Aureliano Dixon MD at 16:40 EST ,
== END 2024-09-13 17:26 | disposition home or self-care (01) ==
PROVIDERS: Emergency Provider Emergency Medicine; Visit Provider Emergency Medicine
DX: S40.011A Contusion of right shoulder, initial encounter (principal); W19.XXXA Unspecified fall, initial encounter; K21.9 Gastro-esophageal reflux disease without esophagitis; Z88.0 Allergy status to penicillin; Z98.890 Other specified postprocedural states; F17.210 Nicotine dependence, cigarettes, uncomplicated
CPT/HCPCS: 73030; 99282

== ENCOUNTER → 2024-11-05 | Outpatient (CLI) | payer OTHER, SELFPAY ==
[2024-11-05 11:28] LABS: Absolute Lymphocyte Count 1.33 X10^3/uL (0.83-4.51); Absolute Neutrophil Count 4.4 X10^3/uL (2.0-7.7); Basophil# 0.03 X10^3/uL; Basophil% 0.5 % (0-1); Eosinophil# 0.19 X10^3/uL; Eosinophils% 2.9 % (0-5); Hematocrit 46.4 % (40-54); Hemoglobin 15.5 g/dL (13.0-16.5); Lymphocyte # 1.33 X10^3/ul (0.83-4.51); Lymphocyte % 20.2 % (19-41); Mean Corp Hgb Conc 33.4 g/dL (32-36); Mean Corpuscular Hgb 30.6 pg (27.0-32.0); Mean Corpuscular Volume 91.5 fL (80-94); Mean Platelet Vol. 10.5 fl (6.2-12.0); Monocyte# 0.63 X10^3/uL; Monocyte% 9.6 % (0-10); NRBC Flagged by Analyzer 0 % (0-5); Neutrophil # 4.37 X10^3/uL (2.7-7.7); Neutrophil % 66.5 % (47-70); Platelet Count 255 K/mm3 (150-450); RBC Distribution Width CV 13.5 % (11.6-14.6); RBC Distribution Width SD 45.9 fl (35.1-43.9); Red Blood Count 5.07 M/mm3 (4.6-6.2); White Blood Count 6.6 K/mm3 (4.4-11.0)
[2024-11-05 11:49] LABS: Anion Gap 4 (5-15); BUN 12 mg/dL (7-18); BUN/Creat Ratio 12.8 RATIO (10-20); Calcium,Total 9.6 mg/dL (8.5-10.1); Chloride 106 mmol/L (98-107); Creatinine, Serum 0.94 mg/dL (0.70-1.30); EST Glomerular Filtration Rate 88 mL/min (>60); Est Glom Filt Rate - Afr Amer 106 mL/min (>60); Glucose 89 mg/dL (74-106); Potassium 4.9 mmol/L (3.5-5.1); Sodium Level 139 mmol/L (136-145)
== END | disposition home or self-care (01) ==
LOC: PSN 10:16
PROVIDERS: Referring Provider Physician Assistant Surgical; Visit Provider Physician Assistant Surgical
DX: Z01.818 Encounter for other preprocedural examination (principal); Z01.810 Encounter for preprocedural cardiovascular examination
CPT/HCPCS: 36415; 80048; 85025; 93005

== ENCOUNTER → 2025-03-23 | Outpatient (CLI) | payer OTHER, SELFPAY ==
[2025-03-23 17:48] LABS: Absolute Lymphocyte Count 1.48 X10^3/uL (0.83-4.51); Absolute Neutrophil Count 4.3 X10^3/uL (2.0-7.7); Basophil# 0.03 X10^3/uL; Basophil% 0.4 % (0-1); Eosinophil# 0.18 X10^3/uL; Eosinophils% 2.7 % (0-5); Hematocrit 44.5 % (40-54); Hemoglobin 15.2 g/dL (13.0-16.5); Lymphocyte # 1.48 X10^3/ul (0.83-4.51); Lymphocyte % 22.2 % (19-41); Mean Corp Hgb Conc 34.2 g/dL (32-36); Mean Corpuscular Hgb 31.5 pg (27.0-32.0); Mean Corpuscular Volume 92.1 fL (80-94); Mean Platelet Vol. 10.3 fl (6.2-12.0); Monocyte# 0.64 X10^3/uL; Monocyte% 9.6 % (0-10); NRBC Flagged by Analyzer 0 % (0-5); Neutrophil # 4.32 X10^3/uL (2.7-7.7); Neutrophil % 64.8 % (47-70); Platelet Count 291 K/mm3 (150-450); RBC Distribution Width CV 12.8 % (11.6-14.6); RBC Distribution Width SD 43.6 fl (35.1-43.9); Red Blood Count 4.83 M/mm3 (4.6-6.2); White Blood Count 6.7 K/mm3 (4.4-11.0)
[2025-03-23 19:05] LABS: CRP < 3.00 mg/L (0.0-3.0)
== END | disposition home or self-care (01) ==
LOC: MTLAB 15:50
PROVIDERS: Referring Provider Orthopaedic Surgery Sports Medicine; Visit Provider Orthopaedic Surgery Sports Medicine
DX: M75.101 Unspecified rotator cuff tear or rupture of right shoulder, not specified as traumatic (principal); M25.511 Pain in right shoulder
CPT/HCPCS: 36415; 85025; 86140

== ENCOUNTER 2025-04-21 06:58 | Day surgery (SDC) | payer OTHER, SELFPAY ==
[2025-04-21] VITALS (10 sets, daily range): BP systolic 121–148; BP diastolic 72–96; PULSE 57–72; RESP 12–18; TEMP 35.7–36.4; O2SAT 96–98; BMI 25.0
[2025-04-21] MEDS: Lactated Ringers 1,000 ML 15 ML IV (07:30)
[2025-04-21] MEDS: Cefazolin 2 GM in 0.9% Normal Saline (100mL Bag) 100 ML IV (09:07)
[2025-04-21] MEDS: Epinephrine (1 mg/ml) 1 MG/ML VIAL (10:41)
== END 2025-04-21 14:43 | disposition home or self-care (01) ==
LOC: SDC 06:59 → AC 07:03
PROVIDERS: Referring Provider Orthopaedic Surgery Sports Medicine; Visit Provider Orthopaedic Surgery Sports Medicine
PROC: (CPT 29805; principal; 2025-04-21 08:55)
DX: M75.101 Unspecified rotator cuff tear or rupture of right shoulder, not specified as traumatic (principal); K21.9 Gastro-esophageal reflux disease without esophagitis; J30.2 Other seasonal allergic rhinitis; Z79.899 Other long term (current) drug therapy; F17.220 Nicotine dependence, chewing tobacco, uncomplicated
CPT/HCPCS: 23395; 29823; 01610; 64415; C1713; J2405